=== PATIENT | female | born 1990 | race Caucasian/White ===

== ENCOUNTER 2018-01-26 11:53 | Emergency (ER) | payer OTHER ==
[~2018-01-26] VITALS: Ht 142.2 cm; Wt 59.0 kg
== END 2018-01-26 15:50 | disposition home or self-care (01) ==
LOC: ER 11:53
DX: O03.9 Complete or unspecified spontaneous abortion without complication (principal)

== ENCOUNTER 2023-06-05 06:30 | Day surgery (SDC) | payer OTHER ==
[2023-05-25 08:45] LABS: PH,URINE 5.5 (5.0-8.0); URINE APPEARANCE Cloudy; URINE BILIRRUBIN Negative (NEGATIVE); URINE BLOOD Trace; URINE COLOR Yellow; URINE GLUCOSE Negative (NEGATIVE); URINE LEUKOCYTE Moderate; URINE NITRATE Negative; URINE PROTEIN Negative (NEGATIVE); URINE UROBILINOGEN 0.2 E.U./dl
[2023-05-25 08:47] LABS: HEMATOCRIT 39.6 % (36.0-45.00); HEMOGLOBIN 13.5 g/dL (12.0-15.00); MEAN CELL VOLUME 87.2 fL (80.00-100.00); MEAN CORPUSCULAR HEMOGLOBIN 29.7 pg (27.00-32.0); MEAN CORPUSCULAR HGB CONC 34.1 g/dl (32.0-36.0); PLATELET COUNT 248 K/uL (150-450); RED BLOOD COUNT 4.54 M/uL (4.00-6.00); RED CELL DISTRIBUTION WIDTH 13.4 % (11.5-14.5)
[2023-05-25 08:49] LABS: URINE BACTERIA 1600.1 uL (0.0-1933); URINE EPITHELIAL CELLS 58.2 uL (0.0-38.8); URINE RBC 2.5 uL (0.0-20.8); URINE WBC 59.8 uL (0.0-23.2)
[2023-05-25 09:14] LABS: INR 0.95; PARTIAL THROMBOPLASTIN TIME 29.8 SECONDS (22.0-34.0)
[2023-05-25 09:40] LABS: ALBUMIN 4.1 gm/dL (3.4-5.0); BILIRUBIN TOTAL 0.32 mg/dL (0.3-1.2); CREATININE SERUM 0.6 mg/dL (0.55-1.02); GFR 115.13; GLOBULINA 3.8 G/DL (2.4-3.5); POTASSIUM 4.74 mEq/L (3.5-5.1); TOTAL PROTEIN 7.9 gm/dL (6.4-8.2)
[~2023-06-05 06:30] MED LIST: ALLERGY RELIE15.8 ML; FLOVENT HFA12 G1
[2023-06-05] MEDS ORDERED: CEFAZOLIN SODIUM 1,000 MG VIAL ONE (10:54)
[2023-06-05] MEDS ORDERED: CEFAZOLIN SODIUM 1,000 MG VIAL IV ONE (12:45)
== END 2023-06-05 15:15 | disposition home or self-care (01) ==
LOC: CIR.AMB 06:30
PROVIDERS: ATTEND Surgery
DX: D17.22 Benign lipomatous neoplasm of skin and subcutaneous tissue of left arm (principal)